=== PATIENT | female | born 1965 | race Caucasian/White ===

== ENCOUNTER 2016-09-30 17:39 | Emergency (ER) | payer OTHER ==
--- NOTE | 2016-10-06 15:59 | ER ---
ADMIT: 09/30/2016 RM/LOC: ER [facility] MR#: [id number] [address] [id number] ANI ALEXIS [address] [place] [id number] Emergency Room Report SEX: F AGE: 51 : 1965 DATE: 09/30/2016 ADDENDUM: This patient comes to the ER because she is having shoulder pain 2 weeks ago. She had a rotator cuff repaired. She seemed to be doing better. She started having worse pain today, and she has been able to get on top of it and she ran out of her Percocet. She called her physician, and they do not prescribe medication over the phone, so she comes to the ER. On physical exam, she does have a lot of ecchymosis in her shoulder post surgery; however, there are no signs of infection. I wrote a prescription for 6 Percocet. She is to follow up with her primary on Sunday. Please see my T-sheet. YUE Lu / Andre Linares MD / dick JOB #: [id number] CC: Andre Linares MD, Attending Physician Alexey Mcfarland MD, Family Physician
== END 2016-09-30 18:15 | disposition home or self-care (01) ==
LOC: ER 17:39
DX: G89.18 Other acute postprocedural pain (principal); M25.511 Pain in right shoulder; E03.9 Hypothyroidism, unspecified; Z90.710 Acquired absence of both cervix and uterus; Z90.49 Acquired absence of other specified parts of digestive tract; Z79.899 Other long term (current) drug therapy; Z79.82 Long term (current) use of aspirin